=== PATIENT | female | born 2000 | race Caucasian/White ===

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

== ENCOUNTER 2023-03-19 17:37 | Emergency (ER) | payer OTHER ==
[~2023-03-19] VITALS: Ht 165.1 cm; Wt 136.1 kg
[2023-03-19 18:47] LABS: Source, Urine Clean Catch
[2023-03-19 18:55] LABS: Appearance, Urine Hazy (Clear); Bilirubin, Urine Neg (Neg); Blood, Urine 5+ (Neg); Color, Urine Yellow (P-Yellow); Glucose Qualitative, Urine Neg (Neg); Ketones, Urine Neg (Neg); Leukocyte Esterase, Urine 3+ (Neg); Nitrite, Urine Pos (Neg); Protein, Urine 3+ (Neg); Specific Gravity, Urine 1.015 (1.003-1.022); Urobilinogen, Urine NORM (Normal)
[2023-03-19 19:10] LABS: White Blood Cells, Urine 25-50 /hpf (0-5)
[2023-03-19 19:11] LABS: Bacteria Many /hpf; Hyaline Casts 0-2 /lpf (0-2); Squamous Epithelial Cells Few /hpf (Few)
[2023-03-19 19:31] LABS: BASOPHILS ABSOLUTE AUTO 0.06 K/mm3 (0.00-0.23); BASOPHILS PERCENT AUTO 0 % (0-2); EOSINOPHILS ABSOLUTE AUTO 0.13 K/mm3 (0.00-0.68); EOSINOPHILS PERCENT AUTO 1 % (0-6); Hematocrit 38.5 % (33.0-51.0); Hemoglobin 12.4 g/dL (11.5-16.0); IMMATURE GRAN ABSOLUTE AUTO 0.07 K/mm3 (0.00-0.10); IMMATURE GRAN PERCENT AUTO 0 % (0-1); LYMPHOCYTES ABSOLUTE AUTO 4.22 K/mm3 (0.84-5.20); LYMPHOCYTES PERCENT AUTO 24 % (21-46); MONOCYTES ABSOLUTE AUTO 0.74 K/mm3 (0.16-1.47); MONOCYTES PERCENT AUTO 4 % (4-13); Mean Corpuscular HGB 27.6 pg (26.0-34.0); Mean Corpuscular HGB Conc 32.2 g/dL (31.5-36.5); Mean Corpuscular Volume 86 fL (80-100); NEUTROPHILS ABSOLUTE AUTO 12.38 K/mm3 (1.96-9.15); NEUTROPHILS PERCENT AUTO 70 % (41-73); Platelet Count 479 K/mm3 (150-400); RDW Coefficient Variation 14.6 % (11.7-14.2); RDW Standard Deviation 45.4 fL (35.1-46.3)
[2023-03-19 19:49] LABS: Albumin, Blood 2.8 g/dL (3.4-5.0); Albumin/Globulin Ratio 0.6 (0.8-1.8); Bilirubin, Total 0.3 mg/dL (0.1-1.0); Bun/Creatinine Ratio 19.1 (12.0-20.0); Creatinine, Blood 0.63 mg/dL (0.40-1.00); Potassium, Blood 4.2 mmol/L (3.5-5.5); Total Protein, Blood 7.8 g/dL (6.4-8.2)
[2023-03-19] MEDS ORDERED: CEPH500 PO (20:58)
[2023-03-19 22:00] VITALS: BP 108/89
== END 2023-03-19 22:25 | disposition home or self-care (01) ==
LOC: ER 17:37
PROVIDERS: Student in an Organized Health Care Education/Training Program
DX: N39.0 Urinary tract infection, site not specified (principal)
CPT/HCPCS: 36415; 80053; 81001; 81025; 83605; 83690; 85025; 87040; 87077; 87086; 87186; 96365; 99284-25; J0696; J7030

== ENCOUNTER 2024-10-10 11:25 | Emergency (ER) | payer OTHER ==
[~2024-10-10] VITALS: Ht 165.1 cm; Wt 136.1 kg
[~2024-10-10 11:25] MED LIST changes: +CEPH500 PO
[2024-10-10 11:40] VITALS: BP 151/95
[2024-10-10] MEDS ORDERED: Ondansetron 4 MG SoluTab SL ONE (11:50)
== END 2024-10-10 13:56 | disposition home or self-care (01) ==
LOC: ER 11:25
DX: S09.90XA Unspecified injury of head, initial encounter (principal); Z79.2 Long term (current) use of antibiotics
CPT/HCPCS: 70450; A9270